=== PATIENT | female | born 1955 | race Two or more races ===

== ENCOUNTER → 2016-06-16 | Outpatient (CLI) | payer BC ==
[~2016-06-16] MED LIST: ACETAMINOPHEN500 M1 PO; ASPIRIN (CHILDR81 MG PO; BRILINTA90 MG PO; CELEBREX200 MG PO; COREG 3.1253.125 MG PO; COREG12.5 MG PO; ENTRESTO 49 MG1 EACH PO; FEOSOL325 MG PO; LEXAPRO20 MG PO; LIPITOR80 MG PO; NICODERM (HABIT14 MG TRANS; NORCO 5-325 MG1 TAB PO; OMEPRAZOLE40 MG PO; PROTONIX40 MG PO; TRINTELLIX 10 PO; TYLENOL EXTRA500 MG PO; VASOTEC10 MG PO; VASOTEC2.5 MG PO; VASOTEC20 MG PO; ZETIA10 MG PO
== END ==
LOC: LNHI 16:53
DX: I50.22 Chronic systolic (congestive) heart failure (principal)